=== PATIENT | female | born 1955 | race Caucasian/White ===

== ENCOUNTER 2023-09-17 10:04 | Day surgery (SDC) | payer MEDICARE, OTHER ==
[~2023-09-17] VITALS: Ht 167.6 cm; Wt 95.0 kg
[~2023-09-17 10:04] MED LIST: ALBU8.5H INH; ATROPINE SULFATE 1% OPHTH SOLN 2ML BTL OD SCH; ELIQ5TAB PO; ERGO500029 PO; FENO145T7 PO; FLURBIPROFEN 0.03% OPHTH SOLN 2.5 ML OD SCH; LOSA50TA28 PO; LR 1,000 ML IV SCH; METO1TAB87 PO; MIDAZOLAM INJ 2MG/2ML VIAL As Ordered ONE; OMEG1CAP85 PO; PHENYLEPHRINE 2.5% OPHTH SOL 2ML OD SCH; TETRACAINE 0.5% OPHTH SOLN 4ML OD SCH; ZOLP10TA2 PO; fentaNYL 100 MCG/2 ML INJECTION As Ordered ONE
[2023-09-17] MEDS: CEFUROXIME 1MG/0.1ML INTRACAMERAL INJ As Ordered ONE (12:40)
[2023-09-17] MEDS: LIDOCAINE 1% SDV 5ML VIAL As Ordered ONE (12:40)
[2023-09-17 12:59] VITALS: BP 171/89; TEMP 96.9; O2SAT 97
== END 2023-09-17 13:15 | disposition home or self-care (01) ==
LOC: M SDC 10:04
PROVIDERS: ATTEND Ophthalmology
DX: H25.11 Age-related nuclear cataract, right eye (principal); I48.91 Unspecified atrial fibrillation; I10 Essential (primary) hypertension; E78.5 Hyperlipidemia, unspecified; K59.09 Other constipation; J45.909 Unspecified asthma, uncomplicated; G47.33 Obstructive sleep apnea (adult) (pediatric); Z98.84 Bariatric surgery status; Z79.01 Long term (current) use of anticoagulants; Z79.51 Long term (current) use of inhaled steroids; Z79.899 Other long term (current) drug therapy
CPT/HCPCS: 66984; J0697; J2250; J3010; V2632